=== PATIENT | male | born 1990 | race Caucasian/White ===

== ENCOUNTER 2024-08-02 18:26 | Emergency (ER) | payer BC, SELFPAY ==
[2024-08-02 18:28] VITALS: BP 138/110; PULSE 119; RESP 18; TEMP 37.2; O2SAT 99; BMI 37.5
[2024-08-02 18:35] VITALS: PULSE 100
[2024-08-02 20:35] VITALS: BP 169/103; PULSE 100; RESP 16; O2SAT 98
[2024-08-02 21:01] VITALS: BP 152/103
--- NOTE | 2024-08-02 21:33 | CT_ITS ---
PROCEDURE: CTA HEAD AND NECK W/ CONTRAST REASON FOR EXAM: Loss of vision. Mild headache. TECHNIQUE: CTA imaging of the head and neck from the aortic arch to the skull vertex with intravenous contrast. 3D reconstructions. COMPARISON: None. # of known CTs in the past 12 months: 0 # of known Cardiac Nuclear Medicine Studies in the past 12 months: 0 FINDINGS: There is no evidence of mass lesion, midline shift, or intracranial hemorrhage. The ventricles and e xtra-axial spaces are age-appropriate. Posterior fossa structures are within normal limits. Bilateral orbits appear symme tric. The osseous structures, as visualized, is within normal limits. Mucous retention cysts versus polyps within the bilateral maxillary sinuses. Remaining visualized paranasal sinuses and mastoid air cells are well pneumatized. Aortic Arch: Normal size and branching pattern. No significant atherosclerotic plaque. Brachiocephalic and Subclavians: Unremarkable RIGHT Carotid: Right CCA: Unremarkable. Right ICA: Unremarkable. Maximum stenosis (NASCET): No significant stenosis Right ECA: Unremarkable. LEFT Carotid: Left CCA: Unremarkable. Left ICA: Unremarkable. Maximum stenosis (NASCET): No significant stenosis. Left ECA: Unremarkable. Vertebrals: Codominant. Arise from the subclavians. Both vertebrals form the basilar. RIGHT Vertebral: Unremarkable. LEFT Vertebral: Unremarkable. No intracranial aneurysms or large vascular malformations are identified. Anterior cerebral arteries: Unremarkable. Middle cerebral arteries: Unremarkable. Basilar artery: Unremarkable. Posterior cerebral arteries: Unremarkable. Other major branches of the posterior circulation: Unremarkable. Major venous structures: Unremarkable. Other findings: No lymphadenopathy. [place] dependent changes within the visualized lung apices. Con genital incomplete fusion involving the posterior arch of C1. CT/CTA Head AND Neck W/ Contrast IMPRESSION: RIGHT CAROTID: No hemodynamically significant stenosis. LEFT CAROTID: No hemodynamically significant stenosis VERTEBRALS: Codominant vertebral arteries, with no hemodynamically significant stenosis INTRACRANIAL: No hemodynamically significant stenosis No acute intracranial process identified. One or more dose reduction techniques were used (e.g., Automated exposure contr ol, adjustment of the mA and/or kV according to patient size, use of iterative reconstruction technique). Reading [facility]
--- NOTE | 2024-08-02 21:34 | EDS_ITS ---
HPI <Dr. Daryl Loya DO - Last Filed: 08/02/24 21:39> History of Present Illness Chief Complaint: Eye Problem Informant: patient and spouse/S.O. Narrative Narrative: Sent to the ED after seeing medicine man for right eye symptoms. States proxy 10 days ago was seeing spots in his eyes. He does not wear glasses or contacts. Last few days no increasing blurry vision. He went to urgent care couple days ago. Over the last day symptoms acutely worse where he cannot see in the center. Mild headache recently. No head trauma. No history of similar. He had eye exam with visual acuity 2400 on the right 20/25 on the left. IOP 14 OD, 16 OS. In addition review of the exam report, cup-to-disc ratio 0.2 bilaterally. Normal vitreous no hemorrhage of the vessels, macula was normal. Prior similar symptoms: No PFSH <Dr. Daryl Loya DO - Last Filed: 08/02/24 21:39> PFSH Medical History Asthma Home Medications ?Medication ?Instructions ?Recorded ?Last Taken ?Type fexofenadine 180 mg tablet 180 mg PO DAILY 08/03/24 Unknown History montelukast 10 mg tablet 10 mg PO DAILY 08/03/24 Unknown History Allergy/AdvReac Type Severity Reaction Status Date / Time cat dander Allergy PT UNABLE Verified 08/02/24 18:28 TO RESPOND-NEEDS F/U Environmental Allergies: Allergy PT UNABLE Verified 08/02/24 18:28 Uncoded (dust) TO RESPOND-NEEDS F/U Social History Smoking Status: Never smoker ROS <Dr. Daryl Loya DO - Last Filed: 08/02/24 21:39> ROS ED Constitutional Constitutional ED: Denies chills, fever(s) or sweats Eyes Eyes: Reports blurry vision and change in vision ENT ENT ED: Denies sore throat Cardiovascular Cardiovascular: Denies chest pain, leg edema, palpitations or racing heartbeat Respiratory/Chest Respiratory/Chest: Denies cough, dyspnea or dyspnea on exertion Gastrointestinal Gastrointestinal: Denies abdominal pain, diarrhea, nausea or vomiting Genitourinary Genitourinary ED: Denies dysuria, hematuria or urinary frequency Musculoskeletal Musculoskeletal: Denies back pain, extremity pain or neck pain Integumentary Denies rash or wounds Neurologic Neurologic: Denies headache(s), paresthesias or weakness EXAM <Dr. Daryl Loya, DO - Last Filed: 08/02/24 21:39> Physical Exam Const Vital Signs: 08/02/24 18:28 08/02/24 18:35 08/02/24 20:35 Temperature 98.9 F Temperature Source Oral Pulse Rate 119 H 100 100 Respiratory Rate 18 16 Blood Pressure 138/110 H 169/103 H Blood Pressure Mean 119 125 Pulse Ox 99 98 Oxygen Delivery Method Room Air Room Air 08/02/24 21:01 Temperature Temperature Source Pulse Rate Respiratory Rate Blood Pressure 152/103 H Blood Pressure Mean 119 Pulse Ox Oxygen Delivery Method Positive well nourished and well developed General Appearance ED: well developed and NAD HEENT Reports moist mucous membranes normocephalic and atraumatic Eyes Eyes Narrative: Central vision loss right eye cannot see the nurse of the hand. He had blurriness visual quadrants peripherally with difficulty with finger counting. Neck full ROM Chest Wall Chest: Negative for tenderness Resp normal respiratory effort and normal air movement Effort and Inspection: symmetric chest movement; Negative for respiratory distress Cardio regular rate, regular rhythm and no murmurs Peripheral Pulses: pulses 2+ throughout GI normal to inspection, nondistended, normoactive bowel sounds and non-tender Palpation: Negative for guarding or rebound tenderness present Extremity normal to inspection General Extremety ED: Negative for edema or tenderness General Extremity: Negative for edema Neuro oriented x3, CN's II-XII intact bilaterally and no sensory deficits noted Sensorium / Orientation: awake and alert Skin no rashes or lesions noted and no wounds MDM <Dr. Daryl Loya, DO - Last Filed: 08/02/24 21:39> MDM MDM Narrative Medical decision making narrative: Interventions / MDM: Differential diagnosis: CVA, central retinal artery occlusion, central retinal vein occlusion Diagnosis considered but do not suspect: N/A My EKG interpretation: N/A Imaging independently reviewed and interpreted by myself: N/A External documents reviewed: N/A Test considered but not ordered:N/A ED course: Patient presented progressive vision loss mostly the last few days he has poor central vision on exam. Will obtain CT angiogram head and neck, labs and EKG. Will plan for admission for further workup. Re-evaluation: stable Disposition discussed with patient/family/significant other: Case discussed with consulting clinician: N/A This note was generated with [employer] dictation software. It may contain incorrect words, spelling, and punctuation that were not noted in checking the note before signing. <Dr. Chuy Chung, DO - Last Filed: 08/03/24 03:22> MDM Treatment and Re-Evaluation Narrative: Patient was signed out to me while awaiting the CTA of his head and neck. CTA revealed no acute findings and lab work revealed no clinically significant changes either. The case was discussed with ophthalmology on-call Dr. Marcus. He states that based on the unilateral vision changes that been present for multiple days normal labs and normal CTA that there is no need for admission. He states he will see the patient in his office at 8 AM today for continued evaluation. Therefore at this time as the patient will have very close follow- up and the CTA reveals no signs of acute CVA patient is otherwise safe for discharge. Discharge Plan Triage Chief Complaint: Eye Problem ED Provider: Daryl Loya Dx/Rx/DC Orders Clinical Impression: Central loss of vision, Blurred vision, right eye, Hypertension Instructions: Understanding Vision Problems, How the Eye Works Prescriptions: No Action montelukast 10 mg tablet 10 mg PO DAILY fexofenadine 180 mg tablet 180 mg PO DAILY Primary Care Provider: Lore High NP Referrals: Jean Marcus MD [Med Staff - Active Staff] - Estrada Person MD [Non-Staff] - Activity Restrictions/Additional Instructions: Please follow-up with ophthalmology. He has agreed to see you this morning at 8 AM in his office. Therefore present for evaluation at that time and return to the ER should you have any further concerns Print Language: Maltese Disposition Disposition: Home, Self Care
--- NOTE | 2024-08-02 21:34 | EKG12_ITS ---
Test Reason : DYSRHYTHMIA Blood Pressure : */* mmHG Vent. Rate : 104 BPM Atrial Rate : 104 BPM P-R Int : 122 ms QRS Dur : 106 ms QT Int : 362 ms P-R-T Axes : 47 -16 4 degrees QTcB Int : 476 ms Sinus tachycardia Minimal voltage criteria for LVH, may be normal variant ( R in aVL ) Borderline ECG Confirmed by MILA WEISS, TARA ([id number]), news videotape editor MAYA DENNY ([id number]) on 08/04/2024 1:18:55 PM Referred By: Confirmed By: TARA ZARAGOZA MD
[2024-08-02 22:01] LABS: Absolute Lymphocyte Count 3.94 X10^3/uL (0.83-4.51); Absolute Neutrophil Count 5.9 X10^3/uL (2.0-7.7); Basophil# 0.05 X10^3/uL; Basophil% 0.4 % (0-1); Eosinophil# 0.11 X10^3/uL; Hematocrit 45.5 % (40-54); Hemoglobin 15.5 g/dL (13.0-16.5); Lymphocyte # 3.94 X10^3/ul (0.83-4.51); Lymphocyte % 35.4 % (19-41); Mean Corp Hgb Conc 34.1 g/dL (32-36); Mean Corpuscular Hgb 28.4 pg (27.0-32.0); Mean Corpuscular Volume 83.5 fL (80-94); Mean Platelet Vol. 9.2 fl (6.2-12.0); Monocyte# 1.04 X10^3/uL; Monocyte% 9.3 % (0-10); NRBC Flagged by Analyzer 0 % (0-5); Neutrophil # 5.94 X10^3/uL (2.7-7.7); Neutrophil % 53.5 % (47-70); Platelet Count 353 K/mm3 (150-450); RBC Distribution Width CV 12.6 % (11.6-14.6); RBC Distribution Width SD 38.1 fl (35.1-43.9); Red Blood Count 5.45 M/mm3 (4.6-6.2); White Blood Count 11.1 K/mm3 (4.4-11.0)
[2024-08-02 22:17] LABS: Prothrombin Time (Protime)PT. 13.8 SECONDS (11.7-14.9)
[2024-08-02 22:18] LABS: Partial Thromboplast Time 29.6 Seconds (24.1-36.2)
[2024-08-02 22:23] LABS: Anion Gap 7 (5-15); BUN 14 mg/dL (7-18); BUN/Creat Ratio 18.5 RATIO (10-20); Calcium,Total 9.8 mg/dL (8.5-10.1); Chloride 107 mmol/L (98-107); Creatinine, Serum 0.76 mg/dL (0.70-1.30); EST Glomerular Filtration Rate 126 mL/min (>60); Est Glom Filt Rate - Afr Amer 152 mL/min (>60); Estimated Creatinine Clearance 194.86 ml/min; Glucose 105 mg/dL (74-106); Potassium 3.5 mmol/L (3.5-5.1); Sodium Level 141 mmol/L (136-145)
[2024-08-02 23:00] VITALS: BP 128/78; PULSE 68; RESP 16; TEMP 37.2; O2SAT 98
[2024-08-03 00:56] VITALS: BP 150/100; PULSE 92; RESP 17; TEMP 36.1; O2SAT 99
--- NOTE | 2024-08-03 01:59 | ED.RN ---
CALLED FOR UPDATE ON PT CT. WAS TOLD CT HAS NOT BEEN READ, AND WILL BE READ SOON BY ONCOMING RADIOLOGIST. NOTIFIED ANDES DO
== END 2024-08-03 04:00 | disposition home or self-care (01) ==
PROVIDERS: Emergency Provider Emergency Medicine; PCP Nurse Practitioner Family; Visit Provider Emergency Medicine
DX: H54.7 Unspecified visual loss (principal); H53.8 Other visual disturbances; I10 Essential (primary) hypertension
CPT/HCPCS: 70496; 70498; 80048; 85025; 85610; 85730; 93005; 99285; Q9967; A4216

== ENCOUNTER 2024-08-04 06:27 | Outpatient (CLI) | payer BC, SELFPAY ==
--- NOTE | 2024-08-04 06:30 | MRI_ITS ---
PROCEDURE: ORBIT FACE NECK W/WO CONTRAST REASON FOR EXAM: Severe right disc edema with severe vision loss. TECHNIQUE: MRI of the orbits and brain without and with contrast COMPARISON: Head CT of 08/02/2024. FINDINGS: In and about the right globe disc, asymmetric edema is seen. Edema is also seen in and surrounding the right optic nerve. Both areas show postcontrast enhancement. Globes show no additional abnormality. No orbital pathology is additionally seen. Intracranial evaluation demonstrates no area of diffusion restriction. No mass or mass effect is noted. No area of abnormal enhancement is seen. Ventricles appear symmetric and within the normal range. No extra-axial fluid collection is identified. Internal auditory canals appear symmetric and within the normal range. Mild mucosal disease is seen at the bilateral sphenoid, ethmoid, and maxillary sinuses. No air-fluid level is noted. The remaining paranasal sinuses appear clear, as do the mastoid air cells. MRI/Orbit Face Neck W/WO Contrast IMPRESSION: 1. In and about the right globe disc, asymmetric edema is seen. Edema is also s een in and surrounding the right optic nerve, also extending to an area posterior to the orbit itself, but not beyond the optic ch iasm.. Both areas show postcontrast enhancement. This is most concerning for significant degree of inflammation. 2. No significant intracranial abnormality is additionally seen. 3. Chronic appearing paranasal sinus disease. Reading Location: [id number]
== END 2024-08-04 23:59 | disposition home or self-care (01) ==
PROVIDERS: PCP Nurse Practitioner Family; Referring Provider Ophthalmology; Visit Provider Ophthalmology
DX: H47.10 Unspecified papilledema (principal)
CPT/HCPCS: 70543; A9575